=== PATIENT | male | born 1980 | race Caucasian/White ===

== ENCOUNTER 2019-07-29 08:49 | Inpatient (IN) | payer BC ==
[~2019-07-29] VITALS: Ht 175.3 cm; Wt 84.1 kg
[2019-07-29] VITALS (8 sets, daily range): BP systolic 112–125; BP diastolic 67–83; PULSE 72–96; TEMP 97.9–98.4
[2019-07-29 09:20] LABS: BASO % 0.3 % (0.0-2.0); EOS % 0.3 % (0-4.0); GRAN # 8.6 (1.4-6.5); GRAN % 80.8 % (42.2-75.2); HEMATOCRIT 47.3 % (42.0-52.0); LYMPH # 1.3 (1.2-3.4); LYMPH % 12.3 % (20.0-51.0); MEAN CELL VOLUME 86 fl (80.0-100.0); MEAN CORPUSCULAR HEMOGLOBIN 29 pg (27.0-31.0); MEAN CORPUSCULAR HGB CONC 34 g/dl (33.0-37.0); MEAN PLATELET VOLUME 11.1 fl (7.4-10.4); MONO # 0.6 (0.1-0.6); MONO % 5.8 % (1.7-9.3); PLATELET COUNT 201 K/mm3 (130-400); RED BLOOD COUNT 5.49 M/mm3 (4.20-5.60); REDCELL DISTRIBUTION WIDTH-CV 12.9 % (11.5-14.5)
[2019-07-29 09:28] LABS: ALBUMIN 4.7 gm/dL (3.5-5.0); BILIRUBIN,TOTAL 1.5 mg/dL (0.0-1.0); CALCIUM 9.5 mg/dL (8.4-10.2); CREATININE, serum 1.16 (0.66-1.25); TOTAL PROTEIN 8.1 gm/dL (6.4-8.2)
[2019-07-29 10:35] LABS: COLLECTION METHOD CLEAN CATCH
[2019-07-29 10:54] LABS: MUCOUS Present /lpf; PH 6 (5-8); SQUAMOUS EPITHELIAL None Seen /hpf; URINE APPEARANCE Clear; URINE BACTERIA None Seen /hpf; URINE BILIRUBIN Negative (NEGATIVE); URINE BLOOD 3+ (NEGATIVE); URINE COLOR Yellow; URINE GLUCOSE Negative (NEGATIVE); URINE KETONE Negative (NEGATIVE); URINE LEUKOCYTE ESTERASE Negative (NEGATIVE); URINE NITRATE Negative (NEGATIVE); URINE PROTEIN(semi-quant) 1+ (NEGATIVE); URINE RBC >50 /hpf; URINE UROBILINOGEN Negative (NEGATIVE)
--- NOTE | 2019-07-29 13:20 | NUR ---
PATIENT ARRIVED TO ROOM 343 VIA BED FROM PACU. PATIENT DROWSY, BUT OTHERWISE A&OX4. POST-OP VSS. PATIENT DENIES NAUSEA OR PAIN AT THIS TIME. PATIENT GIVEN WATER AND JELLO CUP. WILL CONTINUE TO MONITOR.
--- NOTE | 2019-07-29 13:50 | NUR ---
PATIENT TOLERATING CLEAR LIQUIDS WITHOUT ANY COMPLAINTS OF N/V. PATIENT GIVEN LUNCH BOX. POST-OP VSS.
--- NOTE | 2019-07-29 14:48 | NUR ---
PATIENT VOIDING BLOODY URINE. URINE STRAINED. COUPLE SMALL STONE FRAGMENTS PRESENT IN STRAINER. IV TO INT. POST-OP VSS. PATIENT DENIES PAIN AT THIS TIME.
--- NOTE | 2019-07-29 17:10 | NUR ---
POST-OP VSS AND COMPLETE. PATIENT EATING, DRINKING AND VOIDING WITHOUT DIFFICULTY. LEFT WRIST INT DISCONTINUED PER PENDING DISCHARGE. TIP INTACT. PATIENT TOLERATED WELL. QUESTIONS SOUGHT AND ANSWERED. PATIENT PERSONAL BELONGINGS GATHERED. PATIENT AMBULATED WITH SURGICAL STAFF TO PERSONAL VEHICLE. PATIENT DISCHARGED.
== END 2019-07-29 17:10 | disposition home or self-care (01) | DRG 661 ==
LOC: COL.ER 08:49 → SURG 10:58
PROVIDERS: Nurse Practitioner Primary Care; ADMIT Urology
PROC: 0T768DZ Dilation of Right Ureter with Intraluminal Device, Via Natural or Artificial Opening Endoscopic (ICD-10-PCS; principal; 2019-07-29 12:00)
PROC: 0T568ZZ Destruction of Right Ureter, Via Natural or Artificial Opening Endoscopic (ICD-10-PCS; 2019-07-29 12:00)
DX: N13.2 Hydronephrosis with renal and ureteral calculous obstruction (principal); Z87.442 Personal history of urinary calculi; Z87.898 Personal history of other specified conditions
CPT/HCPCS: C1769; C2617; J0690; J1100; J1170; J1885; J2405; J2550; J2704; J3010; J7030; Q9967

== ENCOUNTER 2023-07-14 19:52 | Emergency (ER) | payer OTHER ==
[~2023-07-14] VITALS: Ht 175.3 cm; Wt 89.5 kg
[2023-07-14] MEDS ORDERED: Dicyclomine 10 MG CAP PO ONE (21:15)
[2023-07-14 21:24] LABS: COLLECTION METHOD CLEAN CATCH
[2023-07-14 21:29] LABS: URINE APPEARANCE CLEAR (CLEAR/HAZY); URINE BLOOD NEGATIVE (NEGATIVE); URINE COLOR YELLOW (YELLOW); URINE GLUCOSE NEGATIVE (NEGATIVE); URINE KETONE NEGATIVE (NEGATIVE); URINE NITRATE NEGATIVE (NEGATIVE); URINE PROTEIN(semi-quant) NEGATIVE (NEGATIVE); URINE UROBILINOGEN 0.2 E.U/dL (0.2-1.0)
[2023-07-14 21:31] LABS: BASO # 0.1 K/mm3 (0.0-0.2); BASO % 0.7 % (0.0-2.0); EOS # 0.2 K/mm3 (0.0-0.7); GRAN # 4.1 K/mm3 (1.4-6.5); GRAN % 53.6 % (42.2-75.2); HEMATOCRIT 45.6 % (42.0-52.0); HEMOGLOBIN 15.6 g/dl (13.5-18.0); LYMPH # 2.6 K/mm3 (1.2-3.4); LYMPH % 34.5 % (20.0-51.0); MEAN CELL VOLUME 88 fl (80.0-100.0); MEAN CORPUSCULAR HEMOGLOBIN 30 pg (27-31); MEAN CORPUSCULAR HGB CONC 34 g/dl (33.0-37.0); MEAN PLATELET VOLUME 10.8 fl (7.4-10.4); MONO # 0.6 K/mm3 (0.1-0.6); MONO % 8.1 % (1.7-9.3); PLATELET COUNT 226 K/mm3 (130-400); RED BLOOD COUNT 5.19 M/mm3 (4.20-5.60); REDCELL DISTRIBUTION WIDTH-CV 12.9 % (11.5-14.5)
[2023-07-14 21:45] LABS: ALBUMIN 4.4 gm/dL (3.5-5.0); BILIRUBIN,TOTAL 1.2 mg/dL (0.2-1.2); CALCIUM 8.6 mg/dL (8.4-10.2); CREATININE, serum 1.21 mg/dL (0.72-1.25); POTASSIUM 4.1 mmol/L (3.5-4.5); TOTAL PROTEIN 7.3 gm/dL (6.2-8.1)
[2023-07-14] MEDS ORDERED: NS 50 ML IV SCH (22:23)
[2023-07-14] MEDS ORDERED: Iohexol 300 - 100 ML VIAL IV ONE (22:23)
[2023-07-14] MEDS ORDERED: DULCOLAX STOOL100 MG PO (23:04)
[2023-07-14] MEDS ORDERED: AMOXICILLIN 8751 TAB PO (23:04)
[2023-07-14 23:11] VITALS: BP 136/99; PULSE 61; TEMP 98.1
[2023-07-14] MEDS ORDERED: BENTYL 20MG20 MG/TAB PO (23:15)
== END 2023-07-14 23:17 | disposition home or self-care (01) ==
LOC: COL.ER 19:52
PROVIDERS: Emergency Medicine
DX: K59.00 Constipation, unspecified (principal)
CPT/HCPCS: Q9967